=== PATIENT | female | born 1990 | race Caucasian/White ===

== ENCOUNTER 2018-01-21 12:12 | Emergency (ER) | payer OTHER ==
[~2018-01-21] VITALS: Ht 157.5 cm; Wt 78.7 kg
[2018-01-21 15:48] VITALS: BP 121/76
== END 2018-01-21 15:49 | disposition home or self-care (01) ==
LOC: EME 12:12
DX: M79.672 Pain in left foot (principal); M79.89 Other specified soft tissue disorders; Z98.890 Other specified postprocedural states; Z98.1 Arthrodesis status
CPT/HCPCS: 73630; 99281; 99284

== ENCOUNTER → 2018-02-18 | Outpatient (CLI) | payer OTHER | END | disposition home or self-care (01) | LOC: CDC 11:07 | DX: Z01.810 Encounter for preprocedural cardiovascular examination (principal); S93.622A Sprain of tarsometatarsal ligament of left foot, initial encounter; M19.172 Post-traumatic osteoarthritis, left ankle and foot; R94.31 Abnormal electrocardiogram [ECG] [EKG] | CPT/HCPCS: 93000 ==